=== PATIENT | female | born 1955 | race Caucasian/White ===

== ENCOUNTER 2016-12-04 15:55 | Emergency (ER) | payer MEDICAID, MEDICARE ==
[2016-12-04 16:09] VITALS: TEMP 97.6; BMI 25.6
[2016-12-04] MEDS ORDERED: OXYCODONE HCL 5 MG TABLET PO ONE (16:23)
--- NOTE | 2016-12-04 16:27 | EDPRACDOC ---
- General Information Chief Complaint: Wrist Pain Stated Complaint: LT WRIST PAIN Time Seen by Provider: 12/04/16 16:19 Information Source: Patient, Data Analysis Intern Mode of Arrival: Car Home Medications: Home Medications Alendronate Sodium [Fosamax] 70 mg PO TU 12/04/16 Amitriptyline HCl 25 mg PO QHS 12/04/16 Dexlansoprazole [Dexilant] 60 mg PO DAILY 12/04/16 Escitalopram Oxalate [Lexapro] 20 mg PO QHS 12/04/16 Fenofibrate 160 mg PO DAILY 12/04/16 Fesoterodine Fumarate [Toviaz] 4 mg PO DAILY 12/04/16 Gabapentin 600 mg PO BID 12/04/16 Insulin Aspart [Novolog] 0 units SQ .SLIDING SCALE PRN 12/04/16 Linagliptin [Tradjenta] 5 mg PO DAILY 12/04/16 Lisinopril [Prinivil] 5 mg PO DAILY 12/04/16 Metformin HCl [Metformin HCl ER] 500 mg PO BID 12/04/16 Oxycodone (OxyCONTIN) Ext Rel [Oxycontin] 10 mg PO Q12H PRN 12/04/16 Oxycodone HCl/Acetaminophen [Percocet 5-325 mg Tablet] 1 each PO Q4 #30 tablet 12/04/16 Rosuvastatin Calcium [Crestor] 20 mg PO QHS 12/04/16 Allergies/Adverse Reactions: Allergies Allergy/AdvReac Type Severity Reaction Status Date / Time morphine Allergy Irregular Verified 12/04/16 16:10 Heartbeat - History of Present Illness Onset: travel pta HPI: PATIENT SLIPPED AND FELL ON THE ICE. PUT LEFT ARM OUT TO STEADY HERSELF. DEFORMITY AT LEFT WRIST. PAIN IN ELBOW. NO HEAD INJURY. NO LOC Location: Reports: Radial Dominant Side: Reports: Right Mechanism: Reports: FOOSH Tetanus Up To Date?: Yes Pain Severity: Reports: Moderate Associated Signs and Symptoms: Reports: Elbow Pain ED Past Medical History - History Reviewed Yes Nurses notes reviewed and agree except as marked Travel Outside of [place] in the Last 3 Months?: No - Patient Medical History Cardiac History: Reports: Heart Attack (2007)Comment Only: Hypertension ( HYPOTENSTION PER PATIENT (?)) Psychological History: Denies: Depression Systemic History: Reports: Diabetes Surgical History: Reports: Appendectomy, Cholecystectomy - Social Medical History Smoking Status: Former smoker ETOH: None Substance Abuse: None Lives With: Family Lives In: Home EDM Review of Systems - Review of Systems ROS Negative Except as Marked: Yes All systems reviewed and were negative except as marked Constitutional: No Symptoms Reported. negative: Fever, Chills, Weakness, Fatigue, Loss of Appetite Eyes: No Symptoms Reported. negative: Redness, Blurred Vision, Double Vision, Discharge, Pain, Light Sensitive, Photophobia Ears: No Symptoms Reported. negative: Pain, Hearing Loss, Drainage, Ear Pulling Throat: No Symptoms Reported. negative: Pain, Swelling Nose: No Symptoms Reported. negative: Congestion, Bleeding, Discharge, Injection, Swelling, Deformity, Ecchymosis, Tender, Abrasion, Laceration Mouth: No Symptoms Reported. negative: Pain, Drooling Respiratory: No Symptoms Reported. negative: Cough, Brassy Cough, Barky Cough, Shortness of Breath, Wheezing, Hemoptysis Cardiovascular: No Symptoms Reported. negative: Chest Pain, Palpitations, Syncope, Edema, Orthopnea, PND, Skin Mottling, Cyanosis Gastrointestinal: No Symptoms Reported. negative: Pain, Constipation, Nausea, Vomiting, Diarrhea, Melena, Formula Intolerance Genitourinary: No Symptoms Reported. negative: Dysuria, Hematuria, Frequency, Discharge, Bleeding, Testicular Pain, Neurological: No Symptoms Reported. negative: Headache, Dizziness, Seizure, Numbness, Weakness, Speech Difficulty, Gait Difficulty Musculoskeletal: Wrist. negative: Arm, Ankle, Back, Chestwall, Elbow, Forearm, Femur, Foot, Hand, Hip, Knee, Leg, Neck, Pelvis, Ribs, Shoulder Integumentary: No Symptoms Reported. negative: Itching, Rash, Bruising, Wound Allergic/Immunologic: No Symptoms Reported. negative: Hives, Itching Hematologic: No Symptoms Reported. negative: Lymphadenopathy, Easy Bruising, Easy Bleeding Endocrine: No Symptoms Reported. negative: Weight Gain, Weight Loss Psychiatric: No Symptoms Reported. negative: Anxiety, Depression, Hallucinations, Insomnia, Suicidal - Physical Exam Constitutional: Alert (Awake), Distress ( MILD) Oriented to: Time, Person, Place Last recorded Vital Signs: Last Vital Signs Temp 97.6 F 12/04/16 16:04 Pulse 64 12/04/16 16:04 Resp 20 12/04/16 16:04 BP 160/85 12/04/16 16:04 Pulse Ox 96 12/04/16 16:04 Oxygen Pulse Oxygen Saturation 96 O2 Device Room Air Oxygen Flow Rate Fraction of Inspired Oxygen ( FIO2) - HEENT Head: Normal ( normocephalic) Eye Exam: Normal (PERRL, EOMI, Sclera white) Oropharynx: Normal (Pharynx:Moist without exudate,Gums-no swelling) Tympanic Membrane: Normal ENT EAC: Normal TMJ: Normal Nose: No Symptoms Reported (septum midline) Neck: Normal (FROM, trachea at midline) - Respiratory/Cardiovascular Respiratory: Normal - CTA (BBS clear to auscultation without adventitious sounds ) Cardiovascular: Normal (RRR without murmur, gallop or rub) - GI Auscultation: Normal (NABS) Palpation: Normal (Soft,No rebound or guarding, non distended) Tenderness: Non tender Wolf's Sign: Negative - Musculoskeletal Back: Normal (Non-Tender) Extremities: Other (FOREARM TENDERNESS AND DEFORMITY) - Integumentary Skin: Normal, Warm, Dry Lymphatics: Normal (no adenopathy) - Neurologic Memory Impaired: Normal Motor Function: Normal (Normal tone, Pulses 2+ No cyanosis or edema, FROM) Cranial Nerve: Normal (CN II-X11 intact sensation, strength 5/5) Cerebellar: Normal Mood Description: Normal Perception: Normal ED Procedures - Fracture/Dislocation Reduction Informed of risks, benefits and alternatives described.: Yes Informed Consent Signed: Written Indication: Fracture Attempted reduction was performed: Yes Reduction Attempts: 1 Sedation performed under my direct supervision See flowsheet: Yes Intra-articular anesthetic was placed: No Joint Reduction Site: Other (LEFT WRIST FRACTURE) Pre-Procedure NV Exam: Yes (GOOD CAP REFILL AND SENSATION) Shoulder Reduction was performed by: Traction-Counteraction Post Reduction radiographs showed: Fracture (ADEQUATE REDUCTION) Post Procedure Nerve Exam: GOOD CAP REFILL. MOVES ALL FINGERS. GOOD SENSATION ED Critical Care Note - Critical Care Note Total Time (mins): 30 Decision Time to Discharge: 20:35 - Departure Yes I personally saw and evaluated the patient. Disposition: Home Condition: Good Final Diagnosis: Distal radius fracture, left Qualifiers: Encounter type: initial encounter Fracture type: closed Fracture morphology: Colles' Qualified Code(s): S52.532A - Colles' fracture of left radius, initial encounter for closed fracture Ulna distal fracture Qualifiers: Encounter type: initial encounter Fracture type: closed Fracture morphology: unspecified fracture morphology Laterality: left Qualified Code(s): S52.602A - Unspecified fracture of lower end of left ulna, initial encounter for closed fracture Instructions: Wrist Fracture in Adults (ED) Education/Counseling Given To: Patient Education/Counseling Given Regarding: Diagnosis, Treatment, Prognosis, Follow Up Referrals: Jayjay Ribeiro PA [Primary Care Provider] - One Week Venkatesh Irby MD [Staff Physician] - One Week Prescriptions: Oxycodone HCl/Acetaminophen [Percocet 5-325 mg Tablet] 1 each PO Q4 #30 tablet ED-Moderate Sedation Procedure - Procedure Indication: FRACTURE REDUCTION Informed of risks, benefits and alternatives described.: Yes Informed Consent Signed: Written ASA Status: 3 Physician Performing Procedure: Yes Physician Providing Sedation: Jose Trained Observer: Ger Segura Procedure Type: FRACTURE REDUCTION- CLOSED Procedure Start Time: 19:31 - Patient Information Patient Age: 61 - Oxygen Oxygen Delivery Method: Nasal Cannula - Filer Metal Patterns Filer Metal Patterns: Yes EKG Rhythm: Sinus Rhythm - Medications Dose #1 Administration Time: 19:31 Medication Given: Propofol Dose Given: 100 Medication Unit: mg Route: IV Patient Reaction: Sleeping - Last Dose of Medication Last Medication Time: 19:31 - Procedure Complete Oxygen Discontinued at:: 19:49 - Assessment Skin: Warm Abdomen: Soft Side Rails Up x 2: Yes Drinking Fluids: Yes Gag reflex present: Yes Restraints: No - Adverse Event Adverse Event: No
--- NOTE | 2016-12-04 17:34 | DIRPT ---
CLINICAL DATA: Fell on ice walking to mailbox today, LEFT wrist pain, initial encounter EXAM: LEFT ELBOW - COMPLETE 3+ VIEW COMPARISON: None FINDINGS: Bones appear demineralized. Joint spaces preserved. No acute fracture, dislocation or bone destruction. No elbow joint effusion. IMPRESSION: No acute bony abnormalities. Electronically Signed By: Romeo Cordero M.D. On: 12/04/2016 17:31
--- NOTE | 2016-12-04 17:34 | DIRPT ---
CLINICAL DATA: Wrist pain after falling on ice today. EXAM: LEFT WRIST - COMPLETE 3+ VIEW COMPARISON: None. FINDINGS: The bones appear mildly demineralized. There is a comminuted, impacted and posted displaced fracture of the distal radius. No displacement of the distal articular surface identified. There is also a comminuted fracture of the distal ulna. The distal radioulnar joint appears intact. No carpal bone fractures identified. IMPRESSION: Displaced, comminuted fractures of the distal radius and ulna. Electronically Signed By: Baldev Aguillon M.D. On: 12/04/2016 17:32
--- NOTE | 2016-12-04 17:41 | DIRPT ---
CLINICAL DATA: Pain following fall EXAM: CHEST 2 VIEW COMPARISON: July 01, 2010 FINDINGS: There is no edema or consolidation. Heart size and pulmonary vascularity are normal. Patient is status post coronary artery bypass grafting. No adenopathy. No pneumothorax. There R several lower thoracic and upper lumbar spine no fractures. The patient has had previous kyphoplasty procedures at T8 and T12. No new fracture is apparent. IMPRESSION: Several prior lower thoracic and upper lumbar spine fractures, not appreciably changed. There is no edema or consolidation. No pneumothorax. Electronically Signed By: Baldev Corcoran III, M.D. On: 12/04/2016 17:38
[2016-12-04] MEDS ORDERED: PROPOFOL 200 MG/20 ML VIAL IV ONE (18:25)
[2016-12-04 20:10] VITALS: BP 124/70; PULSE 59
[2016-12-04] MEDS ORDERED: HYDROmorphone 1 MG INJECTION IV ONE (20:13)
--- NOTE | 2016-12-04 20:23 | DIRPT ---
CLINICAL DATA: 61-year-old female status post close reduction of left wrist fractures. EXAM: LEFT WRIST - 2 VIEW COMPARISON: 12/04/2016. FINDINGS: Two views of the left wrist demonstrate postprocedural changes of close reduction and cast fixation for comminuted distal radial and ulnar fractures. Cast material now obscures finer bony detail, but there is slight improvement in alignment, although there continues to be some dorsal angulation and approximately 7 mm of dorsal displacement of the distal radial fracture fragment. IMPRESSION: 1. Status post close reduction and cast fixation for distal radial and ulnar fractures, with slight improvement in alignment, as above. Electronically Signed By: Rafi Duvall M.D. On: 12/04/2016 20:21
== END 2016-12-04 21:00 | disposition home or self-care (01) ==
LOC: ED 15:55 → EDMC 21:00
DX: S52.532A Colles' fracture of left radius, initial encounter for closed fracture (principal); S52.602A Unspecified fracture of lower end of left ulna, initial encounter for closed fracture; W00.0XXA Fall on same level due to ice and snow, initial encounter; E11.9 Type 2 diabetes mellitus without complications; I10 Essential (primary) hypertension; Z79.899 Other long term (current) drug therapy; Z79.4 Long term (current) use of insulin
CPT/HCPCS: 25605; 71020; 73080; 73100; 73110; 96374; 99152; 99283; A9270; J1170; J3490